=== PATIENT | male | born 1985 | race Caucasian/White ===

== ENCOUNTER 2020-08-01 09:39 | Inpatient (IN) | payer OTHER ==
[~2020-08-01] VITALS: Ht 170.2 cm; Wt 62.9 kg
[~2020-08-01 09:39] MED LIST: OMEP20ER; SERT100 PO
[2020-08-01 10:32] LABS: BASOPHILS ABSOLUTE AUTO 0.02 K/mm3 (0.00-0.23); BASOPHILS PERCENT AUTO 0 % (0-2); EOSINOPHILS PERCENT AUTO 0 % (0-6); Hematocrit 38.9 % (37.0-53.0); Hemoglobin 13.8 g/dL (13.5-17.5); IMMATURE GRAN ABSOLUTE AUTO 0.04 K/mm3 (0.00-0.10); IMMATURE GRAN PERCENT AUTO 1 % (0-1); LYMPHOCYTES ABSOLUTE AUTO 0.07 K/mm3 (0.84-5.20); LYMPHOCYTES PERCENT AUTO 1 % (21-46); MONOCYTES ABSOLUTE AUTO 0.89 K/mm3 (0.16-1.47); MONOCYTES PERCENT AUTO 12 % (4-13); Mean Corpuscular HGB 33.1 pg (26.0-34.0); Mean Corpuscular HGB Conc 35.5 g/dL (31.5-36.5); Mean Corpuscular Volume 93 fL (80-100); Mean Platelet Volume 11.4 fL (9.1-12.4); NEUTROPHILS PERCENT AUTO 87 % (41-73); RDW Coefficient Variation 13.7 % (11.7-14.2); Red Blood Cell Count 4.17 M/mm3 (4.30-5.90); White Blood Cell Count 7.62 K/mm3 (4.00-11.30)
[2020-08-01 11:00] LABS: Alanine Aminotransfer (ALT/SGP 198 U/L (12-78); Albumin, Blood 4.6 g/dL (3.4-5.0); Albumin/Globulin Ratio 1.3 (0.8-1.8); Alk Phos 149 U/L (50-136); Anion Gap 18 mmol/L (6-16); Aspartate Aminotrans (AST/SGOT 537 U/L (12-37); Bilirubin, Total 2.5 mg/dL (0.1-1.0); Blood Urea Nitrogen 16 mg/dL (8-24); CO2, Blood 22 mmol/L (21-32); Calcium, Blood 10.1 mg/dL (8.5-10.1); Chloride, Blood 93 mmol/L (98-108); Creatinine, Blood 1.33 mg/dL (0.60-1.20); Ethanol (Alcohol), Blood, Med <3 mg/dL; Globulin, Blood 3.5 g/dL (2.2-4.0); Glomerular Filtration Rate >60 (60-); Glucose, Blood 66 mg/dL (70-99); Potassium, Blood 3.1 mmol/L (3.5-5.5); Sodium, Blood 133 mmol/L (136-145); Total Protein, Blood 8.1 g/dL (6.4-8.2)
[2020-08-01 11:53] LABS: Platelet Count 63 K/mm3 (150-400)
[2020-08-01 14:14] LABS: U Amphetamine Screen DETECTED; U Barbituate Screen Not Detected; U Benzodiazapine Screen Not Detected; U Cocaine Screen Not Detected; U Methadone Screen Not Detected; U Methamphetamine Screen DETECTED; U Opiates Screen Not Detected; U Phencyclidine Screen Not Detected
[2020-08-01 14:15] LABS: U Buprenorphine Screen Not Detected; U Cannabinoids Screen DETECTED; U Oxycodone Screen Not Detected; U Propoxyphene Screen Not Detected
--- NOTE | 2020-08-01 16:00 | NUR ---
RECIEVED PATIENT FROM ED PUPILS @ 6 BUT REACTIVE, PT VERY CONFUSED BUT PLEASANT. UNABLE TO FOCUS AND ANSWER QUESTIONS OTHER THAN NAME AND BIRTHDATE. FLIGHT OF IDEAS, VISUAL AND AUDITORY HALLUCINATIONS EVIDENT. DIAPHORESIS AND TREMORS OBVIOUS. EYS CONTINUE TO "TWITCH" FROM PLACE TO PLACE. UNABLE TO FOCUS AND HOLD GAXZ STEADY. PRECEDEX STARTED, DAIGLE PLACED AND BILATERAL WRIST RESTRAINTS PLACED DUE TO CONSTANT PULLING ON LINE, TUBES AND ELECTRODES. PT HAD PULLED OUT 2 IV'S IN ER AND THEY WERE UNABLE TO KEEP ELECTRODES OR SPO2 MONITOR ON THE PT. LIBRIUM ORDERED AND WILL ADMIN WHEN ABLE.
--- NOTE | 2020-08-01 20:00 | NUR ---
ASSUMED CARE OF PATIENT AT 1915. REPORT RECEIVED. PT PRESENTS IN BED. AWAKENS AND IS CONFUSED. HAVE ADMINISTERED 2 MG ATIVAN FOR INCREASING CIWA AND DID DECREASE PRECEDEX TO 1.O MCG. WILL REVIEW CHART AND PLAN OF CARE FOR THIS PT.
--- NOTE | 2020-08-02 01:07 | NUR ---
PT HAS BEEN SLEEPING AFTER RECEIVING 2 MG LORAZEPAM IV. PRECEDEX AT 1.0 MCG DRIP. WILL CONTINUE TO MONITOR S/S ETOH W/D'S.
[2020-08-02 03:39] LABS: Hematocrit 37.1 % (37.0-53.0); Hemoglobin 12.9 g/dL (13.5-17.5); Mean Corpuscular HGB 33.2 pg (26.0-34.0); Mean Corpuscular HGB Conc 34.8 g/dL (31.5-36.5); Mean Corpuscular Volume 96 fL (80-100); RDW Coefficient Variation 13.1 % (11.7-14.2); RDW Standard Deviation 46.5 fL (35.1-46.3); Red Blood Cell Count 3.88 M/mm3 (4.30-5.90); White Blood Cell Count 3.92 K/mm3 (4.00-11.30)
[2020-08-02 03:45] LABS: Platelet Count 40 K/mm3 (150-400)
[2020-08-02 03:59] LABS: Alanine Aminotransfer (ALT/SGP 167 U/L (12-78); Albumin, Blood 3.2 g/dL (3.4-5.0); Albumin/Globulin Ratio 0.9 (0.8-1.8); Alk Phos 119 U/L (50-136); Anion Gap 14 mmol/L (6-16); Aspartate Aminotrans (AST/SGOT 432 U/L (12-37); Bilirubin, Total 1.8 mg/dL (0.1-1.0); Blood Urea Nitrogen 10 mg/dL (8-24); Bun/Creatinine Ratio 14.8 (12.0-20.0); CO2, Blood 22 mmol/L (21-32); Calcium, Blood 8.3 mg/dL (8.5-10.1); Chloride, Blood 99 mmol/L (98-108); Creatinine, Blood 0.68 mg/dL (0.60-1.20); Globulin, Blood 3.4 g/dL (2.2-4.0); Glomerular Filtration Rate >60 (60-); Glucose, Blood 90 mg/dL (70-99); Magnesium, Blood 2.1 mg/dL (1.6-2.4); Potassium, Blood 3.2 mmol/L (3.5-5.5); Sodium, Blood 135 mmol/L (136-145); Total Protein, Blood 6.6 g/dL (6.4-8.2)
--- NOTE | 2020-08-02 07:13 | NUR ---
ASSUMED CARE PT RESTING IN BED WITH CALL LIGHT IN REACH. PRECEDEX @ 0.8, NS RUNING AT 125. POTASSIUM RIDER DUE TO POT 3.2. PT SEEMS TO BE A LITTLE MORE ALERT THIS MORNING. ABLE TO TELL ME WHGERE HE IS TODAY, BUT STILL UNSURE HOW/WHY HE GOT HERE. BILATERAL SOFT WRIST RESTRAINTS IN PLACE, WILL CONTINUE TO MONITOR.
[2020-08-02 08:09] LABS: HBSAG SCREEN Negative (Negative); HEP B CORE AB, TOT Negative (Negative); HEP C VIRUS AB <0.1 (0.0-0.9)
[2020-08-02 09:09] LABS: HEP A AB, IGM Negative (Negative); HEP B CORE AB, IGM Negative (Negative)
--- NOTE | 2020-08-02 19:42 | NUR ---
CIWA Pt denies N/V. Tremors on palms can be felt, palms barely percept, denies tactile, visual, and auditory distrubances. Cannot state the correct date or add at this time but able to state correct year/location. Mildly anxious at time and not agitated. Denies headache as well. CIWA of 5
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
[2020-08-02 20:50] LABS: Source, Urine Clean Catch
[2020-08-02 20:54] LABS: Bilirubin, Urine Neg (Neg); Blood, Urine 5+ (Neg); Glucose Qualitative, Urine Neg (Neg); Ketones, Urine 3+ (Neg); Leukocyte Esterase, Urine 1+ (Neg); Nitrite, Urine Neg (Neg); Protein, Urine 2+ (Neg); Urobilinogen, Urine 1+ (Normal); pH, Urine 6.5 (5.0-8.0)
[2020-08-02 21:00] LABS: Appearance, Urine Hazy (Clear); Color, Urine Yellow (P-Yellow)
[2020-08-02 21:02] LABS: Bacteria Few /hpf; Squamous Epithelial Cells Rare /hpf (Few)
[2020-08-02 21:06] LABS: U Amphetamine Screen DETECTED
[2020-08-02 21:07] LABS: U Barbituate Screen Not Detected; U Benzodiazapine Screen DETECTED; U Buprenorphine Screen Not Detected; U Cannabinoids Screen DETECTED; U Cocaine Screen Not Detected; U Methadone Screen Not Detected; U Methamphetamine Screen DETECTED; U Opiates Screen Not Detected; U Oxycodone Screen Not Detected; U Phencyclidine Screen Not Detected; U Propoxyphene Screen Not Detected
[2020-08-03 03:36] LABS: BASOPHILS PERCENT AUTO 0 % (0-2); EOSINOPHILS ABSOLUTE AUTO 0.06 K/mm3 (0.00-0.68); EOSINOPHILS PERCENT AUTO 2 % (0-6); Hematocrit 36.2 % (37.0-53.0); Hemoglobin 12.7 g/dL (13.5-17.5); IMMATURE GRAN ABSOLUTE AUTO 0.01 K/mm3 (0.00-0.10); IMMATURE GRAN PERCENT AUTO 0 % (0-1); LYMPHOCYTES ABSOLUTE AUTO 0.37 K/mm3 (0.84-5.20); LYMPHOCYTES PERCENT AUTO 11 % (21-46); MONOCYTES ABSOLUTE AUTO 0.32 K/mm3 (0.16-1.47); MONOCYTES PERCENT AUTO 10 % (4-13); Mean Corpuscular HGB 33.2 pg (26.0-34.0); Mean Corpuscular HGB Conc 35.1 g/dL (31.5-36.5); Mean Corpuscular Volume 95 fL (80-100); Mean Platelet Volume 10.7 fL (9.1-12.4); NEUTROPHILS ABSOLUTE AUTO 2.52 K/mm3 (1.96-9.15); NEUTROPHILS PERCENT AUTO 77 % (41-73); RDW Coefficient Variation 12.8 % (11.7-14.2); Red Blood Cell Count 3.82 M/mm3 (4.30-5.90); White Blood Cell Count 3.28 K/mm3 (4.00-11.30)
[2020-08-03 03:38] LABS: Platelet Count 49 K/mm3 (150-400)
[2020-08-03 04:01] LABS: Alanine Aminotransfer (ALT/SGP 138 U/L (12-78); Albumin, Blood 2.8 g/dL (3.4-5.0); Albumin/Globulin Ratio 0.9 (0.8-1.8); Alk Phos 118 U/L (50-136); Anion Gap 11 mmol/L (6-16); Aspartate Aminotrans (AST/SGOT 282 U/L (12-37); Bilirubin, Total 1.4 mg/dL (0.1-1.0); Blood Urea Nitrogen 9 mg/dL (8-24); Bun/Creatinine Ratio 15.7 (12.0-20.0); CO2, Blood 21 mmol/L (21-32); Chloride, Blood 101 mmol/L (98-108); Creatinine, Blood 0.57 mg/dL (0.60-1.20); Glomerular Filtration Rate >60 (60-); Glucose, Blood 117 mg/dL (70-99); Magnesium, Blood 1.9 mg/dL (1.6-2.4); Phosphorus, Blood 1.5 mg/dL (2.5-4.9); Potassium, Blood 3.6 mmol/L (3.5-5.5); Sodium, Blood 133 mmol/L (136-145); Total Protein, Blood 5.8 g/dL (6.4-8.2)
--- NOTE | 2020-08-03 05:30 | NUR ---
Patient removed lal and IV to use restroom independently Patient walked independently to restroom in room because he states he did not want to bother the nurses. Pt A/O to location, year, event, and able to add numbers. Pt has moderate tremors when arms extended, increased anxiety and agitation, increased HR / RR. Pt had loose bowel movement that started from the bed to the toilet in the room. (Pt had a small beef sandwich prior to this). Denies abd pain and nausea. Pt cleaned, gown changed, and bed alarm turned on. Pt had loose bowel movement all over his body. Pt educated on importance of using call light and fall precautions. Pt states understanding. Precedex Gtt titrated to 0.5 mcg/kg/hr. Pt removed part of lal catheter and new bag/tubing attached via charge nurseLiliana.
--- NOTE | 2020-08-03 07:11 | NUR ---
ASSUMED CARE PT RESTING IN BED WITH CALL LIGHT IN REACH AND BED ALARM ON. PT HAD DISCONECTED HIS DAIGLE AND BROKE THE IV LINE TO GET UP TO RESTROOM FOR A BM. STOOL AND URINE FROM BED TO TOILET AND IV'S HAD TO BE REPLACED. THIS OCCURED AROUND 3AM, RESULTING IN BED ALARM BEING PLACED ON. PRECEDEX WAS REDUCED TO 0.3, AND NOW BACK UP TO.5 D/T TREMORS AND INCREASED CIWA SCORES. WILL CONTINUE TO MONITOR
--- NOTE | 2020-08-03 08:09 | NUR ---
Shift Summary Precedex GTT 0.5 mcg/kg/hr. Pt continues to be resting before incident of walking independently to use in room restroom. Also, after the incident patient resting and has not attempted to get out of bed independently. A/O X 4. Still unable to state how he arrived to hospital but able to state correct location/month/year. Highest CIWA score of 11, treated per emar. Pt responded well. Temp lal in place, draining dark alonzo urine. Pt has increased temp throughout shift (T-max 100.9). NSR. Will report to oncoming shift.
--- NOTE | 2020-08-03 10:07 | NUR ---
ASSUMED CARE RECEIVED REPORT FROM TONY PANIAGUA. PT IS LYING DOWN IN BED ASLEEP WITH EAR PLUGS IN. ON PRECEDEX GTTP AT 0.5 MCG/KG/HOUR, ALONG WITH D5W AT 75 ML/HR, AND 1 BAG OF KPHOS IS INFUSING. VSS. MAP > 65. PT HAS PATENT DAIGLE DRAINING URINE. BED LOW AND LOCKED. CALL LIGHT WITHIN REACH.
--- NOTE | 2020-08-03 13:16 | NUR ---
PT WOKE UP AND SET OFF THE BED ALARM TRYING TO GET OUT OF BED WHILE PT'S PRIMARY RN ON BREAK. PT STATED HE WANTED TO BE DONE WITH "THIS" AND LEAVE. PT ABLE TO BE CONVINCED TO GET BACK IN BED. PRECEDEX TURNED UP. CIWAA DONE AND PT SCORED 13. ATIVAN GIVEN PER ORDERS FOR CIWAA SCORE. PT RESTING IN BED AGAIN.
--- NOTE | 2020-08-03 19:50 | NUR ---
END OF SHIFT NO ACUTE CHANGES T/O DAY. PT HAS BEEN SEDATED ON PRECEDEX AND HAS RECEIVED A DOSE OF IV ATIVAN (2MG) FOR AN ELEVATED CIWA. WHEN PT AWAKE HE WAS ORIENTED TO SELF, PLACE, AND YEAR. THE SITUATION AND THE EVENTS LEADING UP TO HIS ADMISSION ARE FUZZY. HE WAS CALM AND COOPERATIVE WHEN AWAKE - HOWEVER, HE HAD ONE EPISODE OF AGITATION/ANXIETY (SEE PREVIOUS NOTE), PRECEDEX INCREASED TO 0.6 MCG/KG/HR, AND 2MG ATIVAN GIVEN. WITH NO ISSUES SINCE. CIWA HAS NOT BEEN ELEVATED SINCE THAT EVENT. VSS. BANANA BAG INFUSED, PT BACK ON D5W GTTP AT 75 ML/HR. PT NOT PULLING ON IVs OR CHORDS TODAY, FOLLOWING COMMANDS (FOR THE MAJORITY OF THE TIME). HE DENIES PAIN, NAUSEA, SOB, AND ANY DISCOMFORT ASIDE FROM BEING "COLD". HE RECEIVED ANOTHER BLANKET AND WAS BETTER. BED LOW AND LOCKED. CALL LIGHT WITHIN REACH.
--- NOTE | 2020-08-03 21:52 | NUR ---
ASSUMPTION OF CARE REPORT RECEIVED FROM TONY JOY. PT RESTING COMFORTABLY IN BED, VSS, CALL LIGHT WITHIN REACH. DAIGLE PATENT AND DRAINING TO GRAVITY. D5 INFUSING AT 75ML, PRECEDEX AT 0.6MCG. PT ORIENTED TO SELF, PLACE, DATE, AND SITUATION. PT ABLE TO REPOSITION SELF IN BED. BED ALARM ON FOR SAFETY.
[2020-08-04 03:44] LABS: Hematocrit 36.4 % (37.0-53.0); Hemoglobin 12.4 g/dL (13.5-17.5); Mean Corpuscular HGB 32.5 pg (26.0-34.0); Mean Corpuscular HGB Conc 34.1 g/dL (31.5-36.5); Mean Corpuscular Volume 96 fL (80-100); Mean Platelet Volume 11.6 fL (9.1-12.4); Platelet Count 67 K/mm3 (150-400); RDW Coefficient Variation 12.6 % (11.7-14.2); RDW Standard Deviation 44.6 fL (35.1-46.3); Red Blood Cell Count 3.81 M/mm3 (4.30-5.90); White Blood Cell Count 3.21 K/mm3 (4.00-11.30)
[2020-08-04 03:59] LABS: Alanine Aminotransfer (ALT/SGP 115 U/L (12-78); Albumin, Blood 2.6 g/dL (3.4-5.0); Albumin/Globulin Ratio 0.8 (0.8-1.8); Alk Phos 124 U/L (50-136); Anion Gap 7 mmol/L (6-16); Aspartate Aminotrans (AST/SGOT 161 U/L (12-37); Blood Urea Nitrogen 8 mg/dL (8-24); Bun/Creatinine Ratio 14.1 (12.0-20.0); CO2, Blood 23 mmol/L (21-32); Calcium, Blood 7.9 mg/dL (8.5-10.1); Chloride, Blood 104 mmol/L (98-108); Creatinine, Blood 0.57 mg/dL (0.60-1.20); Globulin, Blood 3.3 g/dL (2.2-4.0); Glomerular Filtration Rate >60 (60-); Glucose, Blood 134 mg/dL (70-99); Magnesium, Blood 1.9 mg/dL (1.6-2.4); Potassium, Blood 3.3 mmol/L (3.5-5.5); Sodium, Blood 134 mmol/L (136-145); Total Protein, Blood 5.9 g/dL (6.4-8.2)
[2020-08-04 04:39] LABS: BAND PERCENT MAN 18 % (0-8); BASOPHILS ABSOLUTE MAN 0.03 K/mm3 (0.00-0.23); BASOPHILS PERCENT MAN 1 % (0-2); EOSINOPHILS ABSOLUTE MAN 0.06 K/mm3 (0.00-0.68); EOSINOPHILS PERCENT MAN 2 % (0-6); LYMPHOCYTES ABSOLUTE MAN 0.22 K/mm3 (0.84-5.20); LYMPHOCYTES PERCENT MAN 7 % (21-46); MONOCYTES ABSOLUTE MAN 0.16 K/mm3 (0.16-1.47); MONOCYTES PERCENT MAN 5 % (4-13); NEUTROPHILS ABSOLUTE MAN 2.72 K/mm3 (1.96-9.15); SEG NEUTROPHILS PERCENT MAN 67 % (41-73); TOTAL CELLS COUNTED 100
--- NOTE | 2020-08-04 06:12 | NUR ---
SHIFT SUMMARY PT RESTING COMFORTABLY IN BED; CALL LIGHT WITHIN REACH, USING APPROPRIATELY. VSS T/O SHIFT, HR 60-70'S, O2 SATURATION >92% ON RA. PT UP TO BSC TWICE WITH 2 PERSON ASSIST. ALERT AND ORIENTED ALL SHIFT, UNSURE TO WHY HE IS HAVING PAIN IN HIS SHOULDER BUT BELIEVES THAT HE MAY HAVE FALLEN. D5 INFUSING AT 75ML/HR. PRECEDEX ON STANDBY. PRN LIBRIUM GIVEN Q2H. DAIGLE PATENT AND DRAINING TO GRAVITY.
--- NOTE | 2020-08-04 08:34 | NUR ---
PT ALERT AND ORIENTED X4, PLEASANT AND COOPERATIVE. SEE CIWA SCORE. HAS BEEN OFF PRECEDEX SINCE API ARCHITECT. TOLERATING MEALS. UP TO BSC WITH 1-2 PERSON ASSIST. STRENGTH IMPROVING. PT REPORTS ANXIETY IS BACK TO BASELINE AND TOLERABLE. NO SIGNS OF DISTRESS AT THIS TIME.
--- NOTE | 2020-08-04 15:20 | NUR ---
PT PLEASANT AND COOPERATIVE WITH CARE. CIWA 1 ALL DAY. PT TRANSFERED TO MEDICAL FLOOR ROOM 329 VIA W/C. NO SIGN OF DISTRESS, REPORT GIVEN TO RN.
--- NOTE | 2020-08-04 19:25 | NUR ---
SHIFT SUMMARY: PATIENT XFR FROM ICU10 THIS SHIFT. PT A&O; CALM AND COOPERATIVE WITH CARE. MEDICATED FOR R SHOULDER PAIN IN ICU; PT STATES LITTLE RELIEF WITH ORDERED MEDS. BRUISE ON R FOREHEAD R/T FALLS AT HOME. CIWA Q4; ASSESSED AT 1 THIS SHIFT. PATIENT UP WITH SBA. REPORT GIVEN TO ONCOMING RN.
--- NOTE | 2020-08-05 05:41 | NUR ---
SHIFT SUMMARY: VSS. AFEB. 02 100% ON RA. AAOX4. CIWA SCORE OF 1. PT UP AMB INDEPENDENTLY. GAIT IS WELL PACED AND STEADY. NO ACUTE ISSUES OVERNIGHT.
--- NOTE | 2020-08-05 13:24 | NUR ---
DISCHARGE NOTE PT IS AOX4. PT IV REMOVED BY THIS RN PER DOCUMENTATION. THIS RN REVIEWED DC INSTRUCTIONS WITH PT WHO VERBALIZED AN UNDERSTANDING. 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 PT HAD BELONGINGS PRESENT UPON DC. PT DRESSED SELF IN HOME CLOTHING. PT HAS LEFT THE BUILDING.
== END 2020-08-05 12:33 | disposition home or self-care (01) | DRG 896 ==
LOC: ER 09:39 → ERHOLD 12:35 → ICUW 12:35 → MEDS 08-04 15:41
PROVIDERS: Emergency Medicine; Internal Medicine; Nurse Practitioner Acute Care; ADMIT Internal Medicine
DX: F10.231 Alcohol dependence with withdrawal delirium (principal); G92 Toxic encephalopathy; E87.2 Acidosis; R74.01 Elevation of levels of liver transaminase levels; E87.6 Hypokalemia; D69.6 Thrombocytopenia, unspecified; E16.2 Hypoglycemia, unspecified; D64.9 Anemia, unspecified; F19.10 Other psychoactive substance abuse, uncomplicated; K21.9 Gastro-esophageal reflux disease without esophagitis; F32.9 Major depressive disorder, single episode, unspecified; F41.9 Anxiety disorder, unspecified; S00.83XA Contusion of other part of head, initial encounter; S40.011A Contusion of right shoulder, initial encounter; F17.210 Nicotine dependence, cigarettes, uncomplicated
CPT/HCPCS: 36415; 51702; 70450; 71045; 73030; 76705; 80053; 81001; 82140; 82947; 83690; 83735; 84100; 84443; 85025; 85027; 86317; 86704; 86705; 86708; 86709; 86803; 87086; 87340; 93005; 93010; 96365; 96375; 96376; 99285-25; A9270; G0480; J2060; J2405; J3411; J3475; J3480; J7030; J7042; J7060

== ENCOUNTER 2020-09-27 18:04 | Emergency (ER) | payer OTHER ==
[~2020-09-27] VITALS: Ht 170.2 cm; Wt 68.0 kg
[2020-09-27] MEDS ORDERED: OMEP20ER PO (18:26)
== END 2020-09-27 18:37 | disposition left against medical advice (07) ==
LOC: ER 18:04
DX: F41.9 Anxiety disorder, unspecified (principal); F10.10 Alcohol abuse, uncomplicated; K21.9 Gastro-esophageal reflux disease without esophagitis; F17.210 Nicotine dependence, cigarettes, uncomplicated; Z79.899 Other long term (current) drug therapy
CPT/HCPCS: 99283

== ENCOUNTER 2020-10-09 13:23 | Emergency (ER) | payer OTHER ==
[~2020-10-09] VITALS: Ht 170.2 cm; Wt 68.0 kg
[~2020-10-09 13:23] MED LIST changes: +OMEP20ER PO
[2020-10-09 14:46] LABS: BASOPHILS ABSOLUTE AUTO 0.02 K/mm3 (0.00-0.23); BASOPHILS PERCENT AUTO 0 % (0-2); EOSINOPHILS ABSOLUTE AUTO 0.01 K/mm3 (0.00-0.68); EOSINOPHILS PERCENT AUTO 0 % (0-6); Hematocrit 37.7 % (37.0-53.0); Hemoglobin 13.5 g/dL (13.5-17.5); IMMATURE GRAN ABSOLUTE AUTO 0.04 K/mm3 (0.00-0.10); IMMATURE GRAN PERCENT AUTO 0 % (0-1); LYMPHOCYTES ABSOLUTE AUTO 0.76 K/mm3 (0.84-5.20); LYMPHOCYTES PERCENT AUTO 8 % (21-46); MONOCYTES ABSOLUTE AUTO 0.72 K/mm3 (0.16-1.47); MONOCYTES PERCENT AUTO 8 % (4-13); Mean Corpuscular HGB 30.8 pg (26.0-34.0); Mean Corpuscular HGB Conc 35.8 g/dL (31.5-36.5); Mean Corpuscular Volume 86 fL (80-100); Mean Platelet Volume 11.1 fL (9.1-12.4); NEUTROPHILS ABSOLUTE AUTO 7.57 K/mm3 (1.96-9.15); NEUTROPHILS PERCENT AUTO 83 % (41-73); Platelet Count 100 K/mm3 (150-400); RDW Coefficient Variation 14.6 % (11.7-14.2); RDW Standard Deviation 46.2 fL (35.1-46.3); Red Blood Cell Count 4.39 M/mm3 (4.30-5.90); White Blood Cell Count 9.12 K/mm3 (4.00-11.30)
[2020-10-09 15:17] LABS: Alanine Aminotransfer (ALT/SGP 119 U/L (12-78); Albumin, Blood 3.3 g/dL (3.4-5.0); Alk Phos 85 U/L (50-136); Anion Gap 11 mmol/L (6-16); Aspartate Aminotrans (AST/SGOT 277 U/L (12-37); Blood Urea Nitrogen 8 mg/dL (8-24); Bun/Creatinine Ratio 7.7 (12.0-20.0); CO2, Blood 24 mmol/L (21-32); Calcium, Blood 8.3 mg/dL (8.5-10.1); Chloride, Blood 98 mmol/L (98-108); Creatinine, Blood 1.04 mg/dL (0.60-1.20); Ethanol (Alcohol), Blood, Med 299 mg/dL; Globulin, Blood 3.4 g/dL (2.2-4.0); Glomerular Filtration Rate >60 (60-); Glucose, Blood 158 mg/dL (70-99); Potassium, Blood 2.8 mmol/L (3.5-5.5); Sodium, Blood 133 mmol/L (136-145); Total Protein, Blood 6.7 g/dL (6.4-8.2)
[2020-10-09 18:43] LABS: International Normalized Ratio 0.92
[2020-10-09 19:15] LABS: SARS-Cov-2 (COVID-19) PCR, MMC NEGATIVE (NEGATIVE)
== END 2020-10-09 19:37 | disposition short-term general hospital (02) ==
LOC: ER 13:23
PROVIDERS: Emergency Medicine
DX: S06.6X0A Traumatic subarachnoid hemorrhage without loss of consciousness, initial encounter (principal); S06.5X0A Traumatic subdural hemorrhage without loss of consciousness, initial encounter; S00.11XA Contusion of right eyelid and periocular area, initial encounter; S00.12XA Contusion of left eyelid and periocular area, initial encounter; S00.81XA Abrasion of other part of head, initial encounter; E87.5 Hyperkalemia; Z20.822 Contact with and (suspected) exposure to COVID-19; K21.9 Gastro-esophageal reflux disease without esophagitis; F17.200 Nicotine dependence, unspecified, uncomplicated; F10.10 Alcohol abuse, uncomplicated; Z79.899 Other long term (current) drug therapy; W19.XXXA Unspecified fall, initial encounter; Y92.093 Driveway of other non-institutional residence as the place of occurrence of the external cause
CPT/HCPCS: 70450; 80053; 83735; 85025; 85610; 93005; 93010; 96374; 99285-25; A9270; G0480; J3411; J3475; J7042; U0004

== ENCOUNTER 2020-10-16 22:47 | Observation (INO) | payer OTHER ==
[~2020-10-16] VITALS: Ht 170.2 cm; Wt 71.2 kg
[2020-10-16 23:05] LABS: BASOPHILS ABSOLUTE AUTO 0.09 K/mm3 (0.00-0.23); BASOPHILS PERCENT AUTO 1 % (0-2); EOSINOPHILS ABSOLUTE AUTO 0.08 K/mm3 (0.00-0.68); EOSINOPHILS PERCENT AUTO 1 % (0-6); Hematocrit 36.2 % (37.0-53.0); IMMATURE GRAN ABSOLUTE AUTO 0.13 K/mm3 (0.00-0.10); IMMATURE GRAN PERCENT AUTO 2 % (0-1); LYMPHOCYTES ABSOLUTE AUTO 2.21 K/mm3 (0.84-5.20); LYMPHOCYTES PERCENT AUTO 25 % (21-46); MONOCYTES ABSOLUTE AUTO 1.05 K/mm3 (0.16-1.47); MONOCYTES PERCENT AUTO 12 % (4-13); Mean Corpuscular HGB 31.6 pg (26.0-34.0); Mean Corpuscular HGB Conc 33.1 g/dL (31.5-36.5); Mean Corpuscular Volume 95 fL (80-100); Mean Platelet Volume 9.4 fL (9.1-12.4); NEUTROPHILS ABSOLUTE AUTO 5.13 K/mm3 (1.96-9.15); NEUTROPHILS PERCENT AUTO 59 % (41-73); NRBC ABSOLUTE 0.02 K/mm3 (0.00-0.02); NRBC Auto 0.2 /100 WBC (0.0-0.2); Platelet Count 466 K/mm3 (150-400); RDW Standard Deviation 62.1 fL (35.1-46.3); White Blood Cell Count 8.69 K/mm3 (4.00-11.30)
[2020-10-16 23:22] LABS: International Normalized Ratio 0.9; Prothrombin Time Results 9.8 Sec (9.7-11.5)
[2020-10-16 23:23] LABS: Alanine Aminotransfer (ALT/SGP 68 U/L (12-78); Albumin, Blood 3.2 g/dL (3.4-5.0); Albumin/Globulin Ratio 0.9 (0.8-1.8); Alk Phos 75 U/L (50-136); Anion Gap 4 mmol/L (6-16); Aspartate Aminotrans (AST/SGOT 47 U/L (12-37); Bilirubin, Total 0.2 mg/dL (0.1-1.0); Blood Urea Nitrogen 8 mg/dL (8-24); Bun/Creatinine Ratio 8.5 (12.0-20.0); CO2, Blood 28 mmol/L (21-32); Calcium, Blood 8.4 mg/dL (8.5-10.1); Chloride, Blood 112 mmol/L (98-108); Creatinine, Blood 0.94 mg/dL (0.60-1.20); Globulin, Blood 3.7 g/dL (2.2-4.0); Glomerular Filtration Rate >60 (60-); Glucose, Blood 104 mg/dL (70-99); Potassium, Blood 3.4 mmol/L (3.5-5.5); Sodium, Blood 144 mmol/L (136-145); Total Protein, Blood 6.9 g/dL (6.4-8.2)
[2020-10-16 23:35] LABS: Ethanol (Alcohol), Blood, Med 362 mg/dL
[2020-10-17 04:30] LABS: Source, Urine Clean Catch
[2020-10-17 04:32] LABS: Bilirubin, Urine Neg (Neg); Blood, Urine 1+ (Neg); Glucose Qualitative, Urine Neg (Neg); Ketones, Urine Neg (Neg); Leukocyte Esterase, Urine Neg (Neg); Nitrite, Urine Neg (Neg); Protein, Urine 1+ (Neg); Urobilinogen, Urine NORM (Normal)
[2020-10-17 04:38] LABS: Appearance, Urine Clear (Clear); Bacteria Few /hpf; Color, Urine Yellow (P-Yellow); Red Blood Cells, Urine 0-2 /hpf (0-2); Squamous Epithelial Cells Not Seen /hpf (Few)
[2020-10-17 07:43] LABS: U Amphetamine Screen Not Detected; U Barbituate Screen Not Detected; U Benzodiazapine Screen DETECTED; U Buprenorphine Screen Not Detected; U Cannabinoids Screen DETECTED; U Cocaine Screen Not Detected; U Methadone Screen Not Detected; U Methamphetamine Screen Not Detected; U Opiates Screen Not Detected; U Oxycodone Screen Not Detected; U Phencyclidine Screen Not Detected; U Propoxyphene Screen Not Detected
== END 2020-10-17 08:37 | disposition home or self-care (01) ==
LOC: ER 22:47 → EOR 22:48
PROVIDERS: ADMIT Emergency Medicine
DX: F10.129 Alcohol abuse with intoxication, unspecified (principal); S02.831 Fracture of medial orbital wall, right side; S02.2XXD Fracture of nasal bones, subsequent encounter for fracture with routine healing; S06.5X0D Traumatic subdural hemorrhage without loss of consciousness, subsequent encounter; R22.0 Localized swelling, mass and lump, head; F17.210 Nicotine dependence, cigarettes, uncomplicated; R16.0 Hepatomegaly, not elsewhere classified; K76.0 Fatty (change of) liver, not elsewhere classified; R00.0 Tachycardia, unspecified; W19.XXXD Unspecified fall, subsequent encounter; Y90.8 Blood alcohol level of 240 mg/100 ml or more
CPT/HCPCS: 70450; 70486; 71045; 72125; 74177; 80053; 81001; 83690; 85025; 85610; 96372; 99285-25; G0378; G0480; J1630; J2060; Q9967

== ENCOUNTER 2020-10-20 19:51 | Emergency (ER) | payer OTHER ==
[~2020-10-20] VITALS: Ht 170.2 cm; Wt 97.5 kg
== END 2020-10-20 20:35 | disposition left against medical advice (07) ==
LOC: ER 19:51
DX: R51.9 Headache, unspecified (principal); Z91.81 History of falling; Z53.21 Procedure and treatment not carried out due to patient leaving prior to being seen by health care provider
CPT/HCPCS: 99283

== ENCOUNTER 2020-11-28 02:25 | Observation (INO) | payer OTHER ==
[~2020-11-28] VITALS: Ht 170.2 cm; Wt 72.2 kg
[2020-11-28 05:19] LABS: BASOPHILS ABSOLUTE AUTO 0.08 K/mm3 (0.00-0.23); BASOPHILS PERCENT AUTO 1 % (0-2); EOSINOPHILS PERCENT AUTO 0 % (0-6); Hematocrit 46.9 % (37.0-53.0); Hemoglobin 15.4 g/dL (13.5-17.5); IMMATURE GRAN ABSOLUTE AUTO 0.04 K/mm3 (0.00-0.10); IMMATURE GRAN PERCENT AUTO 0 % (0-1); LYMPHOCYTES ABSOLUTE AUTO 1.09 K/mm3 (0.84-5.20); LYMPHOCYTES PERCENT AUTO 10 % (21-46); MONOCYTES ABSOLUTE AUTO 0.94 K/mm3 (0.16-1.47); MONOCYTES PERCENT AUTO 9 % (4-13); Mean Corpuscular HGB 32.1 pg (26.0-34.0); Mean Corpuscular HGB Conc 32.8 g/dL (31.5-36.5); Mean Corpuscular Volume 98 fL (80-100); Mean Platelet Volume 11.2 fL (9.1-12.4); NEUTROPHILS ABSOLUTE AUTO 8.44 K/mm3 (1.96-9.15); NEUTROPHILS PERCENT AUTO 80 % (41-73); Platelet Count 108 K/mm3 (150-400); RDW Coefficient Variation 16.1 % (11.7-14.2); RDW Standard Deviation 58.8 fL (35.1-46.3); White Blood Cell Count 10.59 K/mm3 (4.00-11.30)
[2020-11-28 05:30] LABS: Alanine Aminotransfer (ALT/SGP 82 U/L (12-78); Albumin, Blood 3.7 g/dL (3.4-5.0); Albumin/Globulin Ratio 0.8 (0.8-1.8); Alk Phos 89 U/L (50-136); Anion Gap 23 mmol/L (6-16); Aspartate Aminotrans (AST/SGOT 127 U/L (12-37); Bilirubin, Total 1.1 mg/dL (0.1-1.0); Blood Urea Nitrogen 10 mg/dL (8-24); Bun/Creatinine Ratio 8.7 (12.0-20.0); CO2, Blood 15 mmol/L (21-32); Calcium, Blood 8.9 mg/dL (8.5-10.1); Chloride, Blood 98 mmol/L (98-108); Creatinine, Blood 1.15 mg/dL (0.60-1.20); Ethanol (Alcohol), Blood, Med <3 mg/dL; Globulin, Blood 4.5 g/dL (2.2-4.0); Glomerular Filtration Rate >60 (60-); Glucose, Blood 114 mg/dL (70-99); Potassium, Blood 3.3 mmol/L (3.5-5.5); Sodium, Blood 136 mmol/L (136-145); Total Protein, Blood 8.2 g/dL (6.4-8.2)
--- NOTE | 2020-11-28 07:15 | NUR ---
INITIAL ASSESSMENT: REPORT RECIEVED FROM ER NURSE. PATIENT ARRIVED TO PCU 1 VIA GURNEY. HE IS ALERT ORIENTED TO SELF AND PLACE. HE IS NOT ABLE TO FOLLOW DIRECTIONS WELL, WHILE TRYING TO PLACE TELEMETRY HE KEPT TRYING TO COVER HIMSELF UP, EVEN AFTER BEING EDUCATED REGARDING THE CURRENT TASK. PUPILS ARE 8MM AND SLUGGISH, SLIGHT NYSTAGMUS NOTED. MILD TREMORS NOTED WHEN ARMS EXTENDED. HE IS REACHING FOR SOMETHING IN THE AIR TO THE RIGHT, PT REORIENTED. HE DENIES PAIN AT THIS TIME. HE HAS THE HICCUPS. HRR. LS DIM IN THE BASES, BIOX WNL ON RA. BT+. PPP. TEMP 100.2 TEMPORAL AND IS WARM TO THE TOUCH, ORAL TEMP IS 99.2. OTHER VSS. BED ALARM ON FOR SAFETY. CALL LIGHT IN REACH. URINAL PLACED AT BEDSIDE. WILL CONTINUE TO MONITOR.
--- NOTE | 2020-11-28 11:00 | NUR ---
DR. BOSCH HAS BEEN BY TO SEE THE PATIENT. HE SEEMS TO BE RESTING COMFORTABLY AND NOT SO RESTLESS. MAG WAS LOW, IVP HUNG. SEE OTHER NEW ORDERS. WILL CONTINUE TO MONITOR.
[2020-11-28 14:37] LABS: SARS-Cov-2 (COVID-19) PCR, MMC NEGATIVE (NEGATIVE)
--- NOTE | 2020-11-28 15:45 | NUR ---
UPDATE: PT IS RESTING ON HIS RIGHT SIDE WITH COVERS OVER HIS HEAD. HE CONTINUES TO BE IMPULSIVE, HE SET THE BED ALARM OFF EARLIER AND WAS ABLE TO AMBULATE TO THE BATHROOM WITH ONE PERSON ASSIST. HE IS STILL NOT ABLE TO FOLLOW DIRECTIONS. VSS. LIBRIUM GIVEN FOR CIWA'S RANGING FROM 15-20. DOSE OF ATIVAN GIVEN WELL. BED ALARM ON FOR SAFETY. CALL LIGHT IN REACH. WILL CONTINUE TO MONITOR.
--- NOTE | 2020-11-28 17:23 | NUR ---
SUMMARY: PATIENT WAS ADMITTED TODAY FOR ETOH AT 0700. PT HAS BEEN IMPULSIVE, CONFUSED, AND HALLUCINATING THROUGH OUT THE SHIFT. CIWAS HAVE BEEN RANGING FROM 15-24, LIBRIUM AND ATIVAN GIVEN PER MD ORDERS. VSS. BED ALARM ON FOR SAFETY. WILL REPORT TO ONCOMING RN.
[2020-11-29 04:06] LABS: BASOPHILS ABSOLUTE AUTO 0.04 K/mm3 (0.00-0.23); BASOPHILS PERCENT AUTO 1 % (0-2); EOSINOPHILS ABSOLUTE AUTO 0.04 K/mm3 (0.00-0.68); EOSINOPHILS PERCENT AUTO 1 % (0-6); Hematocrit 44.4 % (37.0-53.0); Hemoglobin 15.3 g/dL (13.5-17.5); IMMATURE GRAN ABSOLUTE AUTO 0.02 K/mm3 (0.00-0.10); IMMATURE GRAN PERCENT AUTO 0 % (0-1); LYMPHOCYTES ABSOLUTE AUTO 0.41 K/mm3 (0.84-5.20); LYMPHOCYTES PERCENT AUTO 9 % (21-46); MONOCYTES ABSOLUTE AUTO 0.36 K/mm3 (0.16-1.47); MONOCYTES PERCENT AUTO 8 % (4-13); Mean Corpuscular HGB 32.3 pg (26.0-34.0); Mean Corpuscular HGB Conc 34.5 g/dL (31.5-36.5); Mean Corpuscular Volume 94 fL (80-100); Mean Platelet Volume 11.3 fL (9.1-12.4); NEUTROPHILS ABSOLUTE AUTO 3.67 K/mm3 (1.96-9.15); NEUTROPHILS PERCENT AUTO 81 % (41-73); Platelet Count 77 K/mm3 (150-400); RDW Coefficient Variation 15.3 % (11.7-14.2); RDW Standard Deviation 53.3 fL (35.1-46.3); Red Blood Cell Count 4.73 M/mm3 (4.30-5.90); White Blood Cell Count 4.54 K/mm3 (4.00-11.30)
[2020-11-29 04:22] LABS: Alanine Aminotransfer (ALT/SGP 74 U/L (12-78); Albumin, Blood 3.5 g/dL (3.4-5.0); Albumin/Globulin Ratio 0.8 (0.8-1.8); Alk Phos 82 U/L (50-136); Anion Gap 9 mmol/L (6-16); Aspartate Aminotrans (AST/SGOT 114 U/L (12-37); Bilirubin, Total 1.4 mg/dL (0.1-1.0); Blood Urea Nitrogen 14 mg/dL (8-24); Bun/Creatinine Ratio 13.9 (12.0-20.0); CO2, Blood 24 mmol/L (21-32); Calcium, Blood 9.1 mg/dL (8.5-10.1); Chloride, Blood 100 mmol/L (98-108); Creatinine, Blood 1.01 mg/dL (0.60-1.20); Globulin, Blood 4.2 g/dL (2.2-4.0); Glomerular Filtration Rate >60 (60-); Glucose, Blood 160 mg/dL (70-99); Magnesium, Blood 2.4 mg/dL (1.6-2.4); Potassium, Blood 3.4 mmol/L (3.5-5.5); Sodium, Blood 133 mmol/L (136-145); Total Protein, Blood 7.7 g/dL (6.4-8.2)
--- NOTE | 2020-11-29 05:14 | NUR ---
SHIFT SUMMARY ASSUMED CARE OF PT AT 1900. PT IS A/OX3, PT DID NOT KNOW WHY HE WAS AT THE HOSPTIAL. PUPILS ARE SLUGGLISH AND DIALTED. HEART SOUNDS REGULAR, TELE SHOWS SINUS TO SINUS TACH. LUNG SOUNDS DIMINISHED AT THE BASES. PT WAS MOSTLY SLEEPY AT THE BEGINNING OF THE SHIFT, DRENCHING WITH SWEAT. PT CIWAH SCORES RANGED FROM 13-18. PT MEDICATED FREQUENTLY WITH ATIVAN AND LIBRIUM WITH GREAT IMPRVOEMENT. AT ONE POINT DURING THE NIGHT PT AWOKE AND WANTED TO GO OUT TO SMOKE. PT WAS REDIRRECTED BACK TO BED, HOSPITALIST CALLED AND NICOTINE PATCH WAS ORDERED AROUN 0230. PT WAS MEDICATED WITH ATIVAN AND FELL BACK ASLEEP. PT THEN AWOKE AND ATTEMPTED TO LEAVE HIS ROOM LOOKING FOR THE BATHROOM. PT IS HAVING VERY LOOSE STOOLS. PT WAS REDIRECTED BACK TO THE BED AND AGAIN, MEDICATED PER CIWAH. PT REMAINS DIRECTABLE AND CAN BE REASONED WITH, PT IS EAGER ABOUT GOING HOME THIS AM. PT HAS A SWOLLEN L ELBOW WITH WHITE DRAINAGE, OPEN TO AIR AND A CUT ON HIS L THUMB, OPEN TO AIR. PT CANT RECALL HOW HE GOT THESE WOUNDS. CALL LIGHT IN REACH, BED IN LOWEST POSTION, BED ALARM ON.
--- NOTE | 2020-11-29 14:34 | NUR ---
PT DISCHARGE TO HOME TODAY WITH DISCHARGE ORDERS. PT ALERT AND ORIENTED X3, STILL ALITTLE UNSTEADY OF GAIT, CIWA SCORE OF 6. LIBRIUM AND ATIVAN GIVEN AT THE BEGINNING OF THE SHIFT FOR WITHDRAWAL. PT WASNTING TO GO HOME WAS ABLE TO SPEAK WITH DR BOSCH ABOUT PLANS FOR DISCHARGE. DISCHARGE INSTRUCTION PROVIDED PT VERBALIZED UNDERSTANDING. PT WAS PROVIDED A BUS PASS FOR TRANSPORTATION. PT MANAGED TO GET DRESSED BY HIMSELF, ACCOMPANIED BY PCT VIA WHEELCHAIR UPON DISCHARGE ALL BELONGINGS SENT WITH THE PT, NO NEW MEDS, PT TO FOLLOW-UP WITH THE [facility] PROVID[facility].
== END 2020-11-29 13:30 | disposition home or self-care (01) ==
LOC: ER 02:25 → PCU 02:26
PROVIDERS: Internal Medicine; Student in an Organized Health Care Education/Training Program; ADMIT Family Medicine
DX: F10.139 Alcohol abuse with withdrawal, unspecified (principal); G40.89 Other seizures; E87.6 Hypokalemia; E83.42 Hypomagnesemia; R94.5 Abnormal results of liver function studies; E87.2 Acidosis; Z20.822 Contact with and (suspected) exposure to COVID-19; Z79.899 Other long term (current) drug therapy
CPT/HCPCS: 36415; 70450; 80053; 83690; 83735; 85025; 96372-59; 96374-59; 96376; 96376-59; 99285-25; A9270; G0378; G0480; J2060; J3411; J3475; J7042; J7120; U0004

== ENCOUNTER 2021-04-06 01:47 | Day surgery (SDC) | payer OTHER ==
[2021-04-06 11:58] LABS: Alanine Aminotransfer (ALT/SGP 63 U/L (12-78); Albumin, Blood 2.8 g/dL (3.4-5.0); Albumin/Globulin Ratio 0.7 (0.8-1.8); Alk Phos 51 U/L (50-136); Anion Gap 7 mmol/L (6-16); Aspartate Aminotrans (AST/SGOT 38 U/L (12-37); Bilirubin, Total 0.4 mg/dL (0.1-1.0); Blood Urea Nitrogen 15 mg/dL (8-24); Bun/Creatinine Ratio 14.2 (12.0-20.0); CO2, Blood 26 mmol/L (21-32); Chloride, Blood 104 mmol/L (98-108); Creatinine, Blood 1.06 mg/dL (0.60-1.20); Globulin, Blood 4.3 g/dL (2.2-4.0); Glomerular Filtration Rate >60 (60-); Glucose, Blood 156 mg/dL (70-99); Potassium, Blood 4.3 mmol/L (3.5-5.5); Sodium, Blood 137 mmol/L (136-145); Total Protein, Blood 7.1 g/dL (6.4-8.2)
[2021-04-06 12:01] LABS: BASOPHILS ABSOLUTE AUTO 0.06 K/mm3 (0.00-0.23); BASOPHILS PERCENT AUTO 1 % (0-2); EOSINOPHILS ABSOLUTE AUTO 0.51 K/mm3 (0.00-0.68); EOSINOPHILS PERCENT AUTO 6 % (0-6); Hematocrit 43.7 % (37.0-53.0); Hemoglobin 14.3 g/dL (13.5-17.5); IMMATURE GRAN ABSOLUTE AUTO 0.03 K/mm3 (0.00-0.10); IMMATURE GRAN PERCENT AUTO 0 % (0-1); LYMPHOCYTES ABSOLUTE AUTO 1.16 K/mm3 (0.84-5.20); LYMPHOCYTES PERCENT AUTO 13 % (21-46); MONOCYTES ABSOLUTE AUTO 0.69 K/mm3 (0.16-1.47); MONOCYTES PERCENT AUTO 8 % (4-13); Mean Corpuscular HGB 29.6 pg (26.0-34.0); Mean Corpuscular HGB Conc 32.7 g/dL (31.5-36.5); Mean Corpuscular Volume 91 fL (80-100); Mean Platelet Volume 11.1 fL (9.1-12.4); NEUTROPHILS ABSOLUTE AUTO 6.25 K/mm3 (1.96-9.15); NEUTROPHILS PERCENT AUTO 72 % (41-73); Platelet Count 331 K/mm3 (150-400); RDW Coefficient Variation 13.4 % (11.7-14.2); RDW Standard Deviation 44.7 fL (35.1-46.3); Red Blood Cell Count 4.83 M/mm3 (4.30-5.90)
--- NOTE | 2021-04-06 16:38 | NUR ---
WEEKLY LAB RESULTS FAXEX TO DR. ZHOU'S OFFICE.
== END 2021-04-06 11:10 | disposition home or self-care (01) ==
LOC: ATC 01:47
PROVIDERS: Internal Medicine Infectious Disease
DX: M86.9 Osteomyelitis, unspecified (principal); B95.61 Methicillin susceptible Staphylococcus aureus infection as the cause of diseases classified elsewhere; F17.210 Nicotine dependence, cigarettes, uncomplicated; K21.9 Gastro-esophageal reflux disease without esophagitis; Z87.81 Personal history of (healed) traumatic fracture
CPT/HCPCS: 80053; 85025; 85651; 86140; J0696

== ENCOUNTER 2021-04-07 06:03 | Day surgery (SDC) | payer OTHER | END 2021-04-07 23:27 | disposition home or self-care (01) | LOC: ATC 06:03 | DX: M86.9 Osteomyelitis, unspecified (principal) | CPT/HCPCS: J0696 ==

== ENCOUNTER 2021-04-08 21:32 | Day surgery (SDC) | payer OTHER | END 2021-04-08 22:34 | disposition home or self-care (01) | LOC: ATC 21:32 | DX: M86.9 Osteomyelitis, unspecified (principal) | CPT/HCPCS: J0696 ==

== ENCOUNTER 2021-05-10 20:49 | Inpatient (IN) | payer OTHER ==
[~2021-05-10] VITALS: Ht 175.3 cm; Wt 71.4 kg
[~2021-05-10 20:49] MED LIST changes: +CHLO25 PO; +Cleocin HCl150 MG PO
[2021-05-10 21:16] LABS: BASOPHILS ABSOLUTE AUTO 0.07 K/mm3 (0.00-0.23); BASOPHILS PERCENT AUTO 1 % (0-2); EOSINOPHILS ABSOLUTE AUTO 0.01 K/mm3 (0.00-0.68); EOSINOPHILS PERCENT AUTO 0 % (0-6); Hematocrit 44.4 % (37.0-53.0); Hemoglobin 15.3 g/dL (13.5-17.5); IMMATURE GRAN ABSOLUTE AUTO 0.02 K/mm3 (0.00-0.10); IMMATURE GRAN PERCENT AUTO 0 % (0-1); LYMPHOCYTES ABSOLUTE AUTO 0.78 K/mm3 (0.84-5.20); LYMPHOCYTES PERCENT AUTO 10 % (21-46); MONOCYTES ABSOLUTE AUTO 0.89 K/mm3 (0.16-1.47); MONOCYTES PERCENT AUTO 12 % (4-13); Mean Corpuscular HGB 29.8 pg (26.0-34.0); Mean Corpuscular HGB Conc 34.5 g/dL (31.5-36.5); Mean Corpuscular Volume 86 fL (80-100); Mean Platelet Volume 10.7 fL (9.1-12.4); NEUTROPHILS ABSOLUTE AUTO 5.98 K/mm3 (1.96-9.15); NEUTROPHILS PERCENT AUTO 77 % (41-73); Platelet Count 86 K/mm3 (150-400); RDW Standard Deviation 57.9 fL (35.1-46.3); Red Blood Cell Count 5.14 M/mm3 (4.30-5.90); White Blood Cell Count 7.75 K/mm3 (4.00-11.30)
[2021-05-10 21:28] LABS: Alanine Aminotransfer (ALT/SGP 56 U/L (12-78); Albumin, Blood 2.7 g/dL (3.4-5.0); Albumin/Globulin Ratio 0.7 (0.8-1.8); Alk Phos 87 U/L (50-136); Anion Gap 11 mmol/L (6-16); Aspartate Aminotrans (AST/SGOT 76 U/L (12-37); Bilirubin, Total 0.4 mg/dL (0.1-1.0); Blood Urea Nitrogen 11 mg/dL (8-24); Bun/Creatinine Ratio 10.9 (12.0-20.0); CO2, Blood 31 mmol/L (21-32); Calcium, Blood 7.7 mg/dL (8.5-10.1); Chloride, Blood 98 mmol/L (98-108); Creatinine, Blood 1.01 mg/dL (0.60-1.20); Globulin, Blood 3.7 g/dL (2.2-4.0); Glomerular Filtration Rate >60 (60-); Glucose, Blood 182 mg/dL (70-99); Potassium, Blood 3.3 mmol/L (3.5-5.5); Sodium, Blood 140 mmol/L (136-145); Total Protein, Blood 6.4 g/dL (6.4-8.2)
[2021-05-10 21:44] LABS: International Normalized Ratio 0.91; Prothrombin Time Results 9.6 Sec (9.7-11.5)
[2021-05-10 22:39] LABS: Source, Urine Straight Cath
[2021-05-10 22:43] LABS: Bilirubin, Urine Neg (Neg); Blood, Urine 2+ (Neg); Glucose Qualitative, Urine Neg (Neg); Ketones, Urine Neg (Neg); Leukocyte Esterase, Urine Neg (Neg); Nitrite, Urine Neg (Neg); Protein, Urine 3+ (Neg); Urobilinogen, Urine 1+ (Normal)
[2021-05-10 22:46] LABS: Appearance, Urine Clear (Clear); Color, Urine Yellow (P-Yellow)
[2021-05-10 23:01] LABS: White Blood Cells, Urine 0-2 /hpf (0-5)
[2021-05-10 23:02] LABS: Amorphous Light (0-Heavy); Bacteria Few /hpf; Squamous Epithelial Cells Rare /hpf (Few)
[2021-05-10 23:03] LABS: U Amphetamine Screen Not Detected; U Barbituate Screen Not Detected; U Benzodiazapine Screen DETECTED; U Buprenorphine Screen Not Detected; U Cannabinoids Screen DETECTED; U Cocaine Screen Not Detected; U Methadone Screen Not Detected; U Methamphetamine Screen Not Detected; U Opiates Screen Not Detected; U Oxycodone Screen Not Detected; U Phencyclidine Screen Not Detected; U Propoxyphene Screen Not Detected
[2021-05-11 00:30] LABS: PCO2 Arterial 42.8 mmHg (35-45); PO2 Arterial 75.6 mmHg (80-100); pH Blood Arterial 7.45 (7.35-7.45)
[2021-05-11 01:40] LABS: Influenza A, PCR NEGATIVE (NEGATIVE); Influenza B, PCR NEGATIVE (NEGATIVE); Resp Syncytial Virus, PCR NEGATIVE (NEGATIVE); SARS-Cov-2 (COVID-19) PCR, MMC NEGATIVE (NEGATIVE)
[2021-05-11 05:50] LABS: BASOPHILS ABSOLUTE AUTO 0.03 K/mm3 (0.00-0.23); BASOPHILS PERCENT AUTO 1 % (0-2); EOSINOPHILS ABSOLUTE AUTO 0.01 K/mm3 (0.00-0.68); EOSINOPHILS PERCENT AUTO 0 % (0-6); IMMATURE GRAN ABSOLUTE AUTO 0.03 K/mm3 (0.00-0.10); IMMATURE GRAN PERCENT AUTO 1 % (0-1); LYMPHOCYTES ABSOLUTE AUTO 0.34 K/mm3 (0.84-5.20); LYMPHOCYTES PERCENT AUTO 8 % (21-46); MONOCYTES ABSOLUTE AUTO 0.41 K/mm3 (0.16-1.47); MONOCYTES PERCENT AUTO 9 % (4-13); Mean Corpuscular HGB Conc 33.3 g/dL (31.5-36.5); Mean Corpuscular Volume 90 fL (80-100); NEUTROPHILS ABSOLUTE AUTO 3.67 K/mm3 (1.96-9.15); NEUTROPHILS PERCENT AUTO 82 % (41-73); Platelet Count 58 K/mm3 (150-400); RDW Coefficient Variation 19.4 % (11.7-14.2); RDW Standard Deviation 62.2 fL (35.1-46.3); Red Blood Cell Count 4.34 M/mm3 (4.30-5.90); White Blood Cell Count 4.49 K/mm3 (4.00-11.30)
[2021-05-11 06:18] LABS: Anion Gap 9 mmol/L (6-16); Blood Urea Nitrogen 10 mg/dL (8-24); Bun/Creatinine Ratio 10.4 (12.0-20.0); CO2, Blood 28 mmol/L (21-32); Calcium, Blood 6.9 mg/dL (8.5-10.1); Chloride, Blood 104 mmol/L (98-108); Creatinine, Blood 0.97 mg/dL (0.60-1.20); Glomerular Filtration Rate >60 (60-); Glucose, Blood 147 mg/dL (70-99); Potassium, Blood 3.7 mmol/L (3.5-5.5); Sodium, Blood 141 mmol/L (136-145)
[2021-05-11 12:14] LABS: Hematocrit 36.5 % (37.0-53.0); Hemoglobin 12.3 g/dL (13.5-17.5)
--- NOTE | 2021-05-11 19:30 | NUR ---
PATIENT ADMIT TO PCU THIS EVENING. ABLE TO SCOOT SELF FROM GURNEY TO BED. ALERT TO SELF OPENING EYES TO HIS NAME. NOT FOLLOWING DIRECTIONS. VERY IMPULSIVE WITH MOVEMENTS. OLIVIA VEST IN PLACE, BED ALARM ON AND CAMERA ON FOR SAFETY. SLEEPING ON AND OFF. ON 2L NASAL CANNULA SATING MID 90'S. CONTINOUS PULSE BIOX IN PLACE. TELE SHOWING SINUS RHYTHM-SINUS TACH. VITAL SIGNS STABLE, WITH ELEVATED TEMP. NO SIGNS OF EDEMA. NOT ANSWERING QUESTIONS ABOUT PAIN. CIWA Q4 AND NEEDED. DAIGLE CATH IN PLACE DRAINING CLEAR YELLOW URINE TO GRAVITY. LEFT ELBOW WOUND CLEANED AND DRESSED WELL LEFT HIP WOUND, PICTURES IN CHART. WOUND CONSULT AND ORTHO CONSULT CALLED IN. SCATTERED SCABS WELL BRUISING TO LEFT EYE. LEFT EYE NOTED TO HAVE SOME PURULENT DRAINAGE. ANTIBIOTICS INFUSING. CALL LIGHT IN REACH. REPORTED OFF TO ONCOMING RN.
--- NOTE | 2021-05-11 23:00 | NUR ---
ASSUMED CARE OF PT AT 1900. A/O TO SELF. NO PAIN, CP/PRESSURE. CIWA OF 9, MEDICATED PER EMAR. PATIENT IS VERY LETHARGIC, BUT HAS SHORT EPISODES OF QUICK IMPULSIVITY (LIKE TRYING TO STAND). VSS. LOW GRADE FEVER. DAIGLE DRAINING JAYLIN URINE TO GRAVITY. WOUNDS ON L HIP, ELBOW, AND ECCHYMOSIS TO L EYE WITH SMALL AMOUNT OF DRAINAGE FROM EYE. XRAY OBTAINED OF HIP THIS EVENING, PENDING RESULTS. WILL UPDATE CHANGES OCCUR.
--- NOTE | 2021-05-12 12:09 | NUR ---
PT MORE PLEASANT AND COOPERATIVE, CALLS APPROPRIATELY ALERT AND ORIENTED X 3, WAS ABLE TO STATE HOW PT ENDED UP BEING IN THE HOSPITAL, AWARE OF WHAT'S GOING ON. CIWA AT 10. LIBRIUM GIVEN X1 FOR MILD TREMORS. BED BATH PROVIDED THIS MORNING WOUND DRESSING CHANGED. DR CONNELL SAW PT TODAY NO SURGICAL INTERVENTION AT THIS TIME, TO CHANGE DRESSING Q SHIFT WET TO DRY. VITALS HAS BEEN STABLE, PT DENIES ANY PAIN, AFEBRILE. DAIGLE DRAINING VIA GRAVITY. PT TRANSITIONED TO MEDICAL STATUS WITH TELE. PT TRANSFERRED TO ROOM PCU 15 REPORT GIVEN TO DELFIN JIMENEZ, ALL BELONGING SENT WITH THE PT.
--- NOTE | 2021-05-12 14:38 | NUR ---
TRANSFER UPDATE REPORT FOR PT RECIEVED AT 1120 FROM DUDLEY JIMENEZ. PT TRANSFERED FROM PCU 8 TO PCU 15 AT 1220 VIA HOSPITAL BED. PT ON RA UNPON ARRIVAL.
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
[2021-05-12] MEDS ORDERED: CEPH500 PO (20:36)
[2021-05-12] MEDS ORDERED: SULTRIDS PO (20:36)
== END 2021-05-12 17:32 | disposition left against medical advice (07) | DRG 871 ==
LOC: ER 20:49 → ERHOLD 05-11 02:11 → PCU 05-11 16:46
PROVIDERS: Family Medicine; Student in an Organized Health Care Education/Training Program; ADMIT Family Medicine
DX: A41.9 Sepsis, unspecified organism (principal); G92.8 Other toxic encephalopathy; L03.114 Cellulitis of left upper limb; F10.239 Alcohol dependence with withdrawal, unspecified; E87.2 Acidosis; E87.6 Hypokalemia; D69.6 Thrombocytopenia, unspecified; D50.9 Iron deficiency anemia, unspecified; R65.20 Severe sepsis without septic shock; Z20.822 Contact with and (suspected) exposure to COVID-19; F43.10 Post-traumatic stress disorder, unspecified; Y90.8 Blood alcohol level of 240 mg/100 ml or more; F32.A Depression, unspecified; K21.00 Gastro-esophageal reflux disease with esophagitis, without bleeding; K74.60 Unspecified cirrhosis of liver; Z79.899 Other long term (current) drug therapy; Z59.02 Unsheltered homelessness
CPT/HCPCS: 0241U; 36415; 36600; 51702; 70450; 71260; 72125; 73080; 73502; 74177; 80048; 80053; 80202; 81001; 82803; 83605; 83735; 84145; 85014; 85018; 85025; 85610; 85651; 85730; 86140; 87040; 87077; 87086; 87186; 93005; 93010; 96361; 96365; 96366; 96367; 96375; 96376; 99285-25; A9270; C9113; G0480; J0295; J1790; J2060; J2405; J2543; J3370; J3411; J3475; J3480; J7030; J7042; J7050; Q9967

== ENCOUNTER 2021-05-12 19:05 | Emergency (ER) | payer OTHER ==
[~2021-05-12] VITALS: Ht 170.2 cm; Wt 77.1 kg
[2021-05-12] MEDS ORDERED: SULTRIDS PO (20:36)
[2021-05-12] MEDS ORDERED: CEPH500 PO (20:36)
== END 2021-05-12 20:59 | disposition home or self-care (01) ==
LOC: ER 19:05
DX: L03.116 Cellulitis of left lower limb (principal); L03.114 Cellulitis of left upper limb; F17.210 Nicotine dependence, cigarettes, uncomplicated; K21.9 Gastro-esophageal reflux disease without esophagitis
CPT/HCPCS: 99283; A9270

== ENCOUNTER 2021-05-14 12:31 | Emergency (ER) | payer OTHER ==
[~2021-05-14] VITALS: Ht 170.2 cm; Wt 72.6 kg
[~2021-05-14 12:31] MED LIST changes: +CEPH500 PO; +SULTRIDS PO
[2021-05-14 13:58] LABS: BASOPHILS ABSOLUTE AUTO 0.04 K/mm3 (0.00-0.23); BASOPHILS PERCENT AUTO 1 % (0-2); EOSINOPHILS ABSOLUTE AUTO 0.14 K/mm3 (0.00-0.68); EOSINOPHILS PERCENT AUTO 4 % (0-6); Hematocrit 34.3 % (37.0-53.0); Hemoglobin 11.5 g/dL (13.5-17.5); IMMATURE GRAN ABSOLUTE AUTO 0.02 K/mm3 (0.00-0.10); IMMATURE GRAN PERCENT AUTO 1 % (0-1); LYMPHOCYTES PERCENT AUTO 26 % (21-46); MONOCYTES ABSOLUTE AUTO 0.49 K/mm3 (0.16-1.47); MONOCYTES PERCENT AUTO 13 % (4-13); Mean Corpuscular HGB 30.7 pg (26.0-34.0); Mean Corpuscular HGB Conc 33.5 g/dL (31.5-36.5); Mean Corpuscular Volume 92 fL (80-100); Mean Platelet Volume 9.9 fL (9.1-12.4); NEUTROPHILS ABSOLUTE AUTO 2.16 K/mm3 (1.96-9.15); NEUTROPHILS PERCENT AUTO 56 % (41-73); Platelet Count 133 K/mm3 (150-400); RDW Coefficient Variation 19.4 % (11.7-14.2); RDW Standard Deviation 63.6 fL (35.1-46.3); Red Blood Cell Count 3.74 M/mm3 (4.30-5.90); White Blood Cell Count 3.85 K/mm3 (4.00-11.30)
[2021-05-14 14:17] LABS: Alanine Aminotransfer (ALT/SGP 46 U/L (12-78); Albumin, Blood 2.4 g/dL (3.4-5.0); Albumin/Globulin Ratio 0.7 (0.8-1.8); Alk Phos 108 U/L (50-136); Anion Gap 8 mmol/L (6-16); Aspartate Aminotrans (AST/SGOT 50 U/L (12-37); Bilirubin, Total 0.2 mg/dL (0.1-1.0); Blood Urea Nitrogen 16 mg/dL (8-24); Bun/Creatinine Ratio 20.4 (12.0-20.0); CO2, Blood 26 mmol/L (21-32); Chloride, Blood 110 mmol/L (98-108); Creatinine, Blood 0.79 mg/dL (0.60-1.20); Ethanol (Alcohol), Blood, Med 264 mg/dL; Globulin, Blood 3.3 g/dL (2.2-4.0); Glomerular Filtration Rate >60 (60-); Glucose, Blood 106 mg/dL (70-99); Potassium, Blood 3.2 mmol/L (3.5-5.5); Sodium, Blood 144 mmol/L (136-145); Total Protein, Blood 5.7 g/dL (6.4-8.2)
[2021-05-14 14:50] LABS: Percent Saturation 15.2 % (20.0-50.0)
[2021-05-14] MEDS ORDERED: Bactrim Ds Tab1 EACH PO (14:55)
[2021-05-14] MEDS ORDERED: CEPH500 PO (14:55)
== END 2021-05-14 15:49 | disposition home or self-care (01) ==
LOC: ER 12:31
PROVIDERS: Physician Assistant
DX: F10.10 Alcohol abuse, uncomplicated (principal); D50.9 Iron deficiency anemia, unspecified; L03.114 Cellulitis of left upper limb; F17.210 Nicotine dependence, cigarettes, uncomplicated; K21.9 Gastro-esophageal reflux disease without esophagitis; F43.9 Reaction to severe stress, unspecified; Y90.9 Presence of alcohol in blood, level not specified; Z79.899 Other long term (current) drug therapy
CPT/HCPCS: 36415; 70450; 80053; 82728; 83540; 83550; 83605; 83735; 85025; 93005; 93010; 99284-25; A9270; G0480; J7030

== ENCOUNTER 2021-05-17 09:26 | Emergency (ER) | payer OTHER ==
[~2021-05-17] VITALS: Ht 170.2 cm; Wt 71.2 kg
[~2021-05-17 09:26] MED LIST changes: +Bactrim Ds Tab1 EACH PO
== END 2021-05-17 11:01 | disposition home or self-care (01) ==
LOC: ER 09:26
DX: L98.499 Non-pressure chronic ulcer of skin of other sites with unspecified severity (principal); F10.20 Alcohol dependence, uncomplicated; K21.9 Gastro-esophageal reflux disease without esophagitis; M19.90 Unspecified osteoarthritis, unspecified site; F17.210 Nicotine dependence, cigarettes, uncomplicated; Z79.899 Other long term (current) drug therapy
CPT/HCPCS: 99284

== ENCOUNTER 2021-09-19 13:52 | Emergency (ER) | payer OTHER ==
[~2021-09-19] VITALS: Ht 170.2 cm; Wt 72.6 kg
[2021-09-19 14:46] LABS: BASOPHILS ABSOLUTE AUTO 0.05 K/mm3 (0.00-0.23); BASOPHILS PERCENT AUTO 1 % (0-2); EOSINOPHILS ABSOLUTE AUTO 0.04 K/mm3 (0.00-0.68); EOSINOPHILS PERCENT AUTO 1 % (0-6); Hematocrit 46.7 % (37.0-53.0); Hemoglobin 15.6 g/dL (13.5-17.5); IMMATURE GRAN ABSOLUTE AUTO 0.02 K/mm3 (0.00-0.10); IMMATURE GRAN PERCENT AUTO 0 % (0-1); LYMPHOCYTES ABSOLUTE AUTO 1.32 K/mm3 (0.84-5.20); LYMPHOCYTES PERCENT AUTO 17 % (21-46); MONOCYTES ABSOLUTE AUTO 0.97 K/mm3 (0.16-1.47); MONOCYTES PERCENT AUTO 12 % (4-13); Mean Corpuscular HGB 27.1 pg (26.0-34.0); Mean Corpuscular HGB Conc 33.4 g/dL (31.5-36.5); Mean Corpuscular Volume 81 fL (80-100); Mean Platelet Volume 10.6 fL (9.1-12.4); NEUTROPHILS ABSOLUTE AUTO 5.43 K/mm3 (1.96-9.15); NEUTROPHILS PERCENT AUTO 69 % (41-73); Platelet Count 401 K/mm3 (150-400); RDW Coefficient Variation 15.8 % (11.7-14.2); RDW Standard Deviation 46.5 fL (35.1-46.3); Red Blood Cell Count 5.76 M/mm3 (4.30-5.90); White Blood Cell Count 7.83 K/mm3 (4.00-11.30)
[2021-09-19 15:06] LABS: Ethanol (Alcohol), Blood, Med <3 mg/dL; Salicylate 3.5 mg/dL (2.8-20.0)
[2021-09-19 15:10] LABS: Acetaminophen, Random <2.0 ug/mL (10.0-30.0); Alanine Aminotransfer (ALT/SGP 79 U/L (12-78); Albumin, Blood 3.9 g/dL (3.4-5.0); Albumin/Globulin Ratio 1.1 (0.8-1.8); Alk Phos 64 U/L (50-136); Anion Gap 9 mmol/L (6-16); Aspartate Aminotrans (AST/SGOT 44 U/L (12-37); Bilirubin, Total 0.7 mg/dL (0.1-1.0); Blood Urea Nitrogen 15 mg/dL (8-24); Bun/Creatinine Ratio 10.9 (12.0-20.0); CO2, Blood 23 mmol/L (21-32); Calcium, Blood 9.7 mg/dL (8.5-10.1); Chloride, Blood 108 mmol/L (98-108); Creatinine, Blood 1.37 mg/dL (0.60-1.20); Globulin, Blood 3.7 g/dL (2.2-4.0); Glomerular Filtration Rate 68 (60-); Glucose, Blood 127 mg/dL (70-99); Potassium, Blood 3.7 mmol/L (3.5-5.5); Sodium, Blood 140 mmol/L (136-145); Total Protein, Blood 7.6 g/dL (6.4-8.2)
== END 2021-09-19 15:48 | disposition home or self-care (01) ==
LOC: ER 13:52
PROVIDERS: Physician Assistant
DX: R45.851 Suicidal ideations (principal); Z53.21 Procedure and treatment not carried out due to patient leaving prior to being seen by health care provider
CPT/HCPCS: 80053; 85025; 93005; 93010; 99284-25; G0480